=== PATIENT | female | born 1970 | race Caucasian/White ===

== ENCOUNTER 2016-05-26 12:51 | Emergency (ER) | payer SELFPAY ==
--- NOTE | 2016-05-26 13:45 | ER Document Report ---
ED Medical Screen (RME) - General Stated Complaint: COUGH Notes: Patient complains of sinus congestion, sore neck, cough and dizziness since Wednesday afternoon. No known fever. Denies history of sinus infections. I have greeted and performed a rapid initial assessment of this patient. A comprehensive ED assessment and evaluation of the patient, analysis of test results and completion of the medical decision making process will be conducted by additional ED providers. TRAVEL OUTSIDE OF THE [place] IN LAST 30 DAYS: No - Related Data Allergies/Adverse Reactions: tramadol [Tramadol] Allergy (Intermediate, Verified 05/26/16 13:43) "SLUGGISH" "SICK FEELING" Past Medical History - Past Medical History Cardiac Medical History: Denies: Hx Coronary Artery Disease, Hx Heart Attack, Hx Hypertension Pulmonary Medical History: Denies: Hx Asthma, Hx Bronchitis, Hx COPD, Hx Pneumonia Neurological Medical History: Denies: Hx Cerebrovascular Accident, Hx Seizures Renal/ Medical History: Reports: Hx Ovarian Cysts Musculoskeltal Medical History: Denies Hx Arthritis Psychiatric Medical History: Reports: Hx Depression Past Surgical History: Reports: Hx Abdominal Surgery - gastric bypass, Hx Cholecystectomy, Hx Gastric Bypass Surgery, Hx Orthopedic Surgery - KNEE. Denies: Hx Hysterectomy - Immunizations Hx Diphtheria, Pertussis, Tetanus Vaccination: No Physical Exam - Vital signs Vitals: Temp Pulse Resp BP Pulse Ox 99.2 F 92 18 91/64 L 100 05/26/16 13:42 05/26/16 13:42 05/26/16 13:42 05/26/16 13:42 05/26/16 13:42 - Respiratory Respiratory status: No respiratory distress Breath sounds: Normal Course - Vital Signs Vital signs: Temp Pulse Resp BP Pulse Ox 99.2 F 92 18 91/64 L 100 05/26/16 13:42 05/26/16 13:42 05/26/16 13:42 05/26/16 13:42 05/26/16 13:42
[2016-05-26] MEDS ORDERED: PSEUDOEPHEDRINE HCL 30 MG TABLET PO ONE (16:35)
[2016-05-26] MEDS ORDERED: IBUPROFEN 600 MG TABLET PO ONE (16:35)
[2016-05-26] MEDS ORDERED: LORATADINE 10 MG TABLET PO ONE (16:35)
--- NOTE | 2016-05-26 16:39 | ER Document Report ---
ED Respiratory Problem - General Chief Complaint: Sinus Congestion Stated Complaint: COUGH Time seen by provider: 16:34 Mode of Arrival: Ambulatory Information source: Patient Notes: 45-year-old female presents to ED for cough congestion and body aches dizziness since Wednesday afternoon. States she did have a elevated temp sometimes during this period. Patient states she's been taken Mucinex and ibuprofen. TRAVEL OUTSIDE OF THE [place] IN LAST 30 DAYS: No - HPI Patient complains to provider of: Cough Onset: Other Initiating Event: - Wednesday Quality of pain: Achy Severity: Mild Pain Level: 2 Associated symptoms: Cough, Fever, PND, Runny nose, Sinus pain/pressure Similar symptoms previously: Yes Recently seen / treated by doctor: No - Related Data Allergies/Adverse Reactions: tramadol [Tramadol] Allergy (Intermediate, Verified 05/26/16 13:43) "SLUGGISH" "SICK FEELING" Past Medical History - General Information source: Patient - Social History Smoking Status: Never Smoker Cigarette use (# per day): No Chew tobacco use (# tins/day): No Smoking Education Provided: No Frequency of alcohol use: Occasional Drug Abuse: None Occupation: call center Lives with: Friend Family History: CAD, COPD, DM, Hyperlipidemia, Hypertension, Malignancy Patient has suicidal ideation: No Patient has homicidal ideation: No - Past Medical History Cardiac Medical History: Reports: None Pulmonary Medical History: Denies: Hx Asthma, Hx Bronchitis, Hx COPD, Hx Pneumonia EENT Medical History: Reports: None Neurological Medical History: Reports: None Endocrine Medical History: Reports: None Renal/ Medical History: Reports: Hx Ovarian Cysts Malignancy Medical History: Reports: None GI Medical History: Reports: None Musculoskeltal Medical History: Reports None Skin Medical History: Reports None Psychiatric Medical History: Reports: Hx Depression Traumatic Medical History: Reports: None Past Surgical History: Reports: Hx Cholecystectomy, Hx Gastric Bypass Surgery, Hx Orthopedic Surgery - KNEE - Immunizations Hx Diphtheria, Pertussis, Tetanus Vaccination: No Review of Systems - Review of Systems Constitutional: Fever, Recent illness EENT: Nose discharge, Sinus discharge Cardiovascular: No symptoms reported Respiratory: Cough Gastrointestinal: No symptoms reported Genitourinary: No symptoms reported Female Genitourinary: No symptoms reported Musculoskeletal: No symptoms reported Skin: No symptoms reported Hematologic/Lymphatic: No symptoms reported Neurological/Psychological: No symptoms reported -: Yes All other systems reviewed and negative Physical Exam - Vital signs Vitals: Temp Pulse Resp BP Pulse Ox 99.2 F 92 18 91/64 L 100 05/26/16 13:42 05/26/16 13:42 05/26/16 13:42 05/26/16 13:42 05/26/16 13:42 Interpretation: Normal - General General appearance: Appears well, Alert - HEENT Head: Normocephalic, Atraumatic Eyes: Normal Pupils: PERRL Ears: Normal External canal: Normal Tympanic membrane: Normal Sinus: Tenderness Nasal: Purulent discharge, Swelling Mouth/Lips: Normal Mucous membranes: Normal Pharynx: Post nasal drainage Neck: Normal - Respiratory Respiratory status: No respiratory distress Chest status: Nontender Breath sounds: Nonproductive cough Chest palpation: Normal - Cardiovascular Rhythm: Regular Heart sounds: Normal auscultation Murmur: No - Abdominal Inspection: Normal Distension: No distension Bowel sounds: Normal Tenderness: Nontender Organomegaly: No organomegaly - Back Back: Normal, Nontender - Extremities General upper extremity: Normal inspection, Nontender, Normal color, Normal ROM , Normal temperature General lower extremity: Normal inspection, Nontender, Normal color, Normal ROM , Normal temperature, Normal weight bearing. No: Cj's sign - Neurological Neuro grossly intact: Yes Cognition: Normal Orientation: AAOx4 [place] Coma Scale Eye Opening: Spontaneous [place] Coma Scale Verbal: Oriented [place] Coma Scale Motor: Obeys Commands [place] Coma Scale Total: 15 Speech: Normal Motor strength normal: LUE, RUE, LLE, RLE Sensory: Normal - Psychological Associated symptoms: Normal affect, Normal mood - Skin Skin Temperature: Warm Skin Moisture: Dry Skin Color: Normal Course - Re-evaluation Re-evalutation: 05/26/16 16:38 Assessment consistent with an upper respiratory infection. Patient is afebrile. Will treat with Sudafed and Claritin and ibuprofen. Patient states she's already had Mucinex today. Patient to follow-up with her primary doctor. - Vital Signs Vital signs: Temp Pulse Resp BP Pulse Ox 99.3 F 88 18 92/65 L 100 05/26/16 17:15 05/26/16 17:15 05/26/16 17:15 05/26/16 17:15 05/26/16 17:15 Discharge - Discharge Clinical Impression: Upper respiratory infection Qualifiers: URI type: unspecified URI Qualified Code(s): J06.9 - Acute upper respiratory infection, unspecified Condition: Good Disposition: HOME, SELF-CARE Instructions: Family Physicians / Practices Additional Instructions: UPPER RESPIRATORY ILLNESS: You have a viral infection of the respiratory passages -- a "cold." This common infection causes nasal congestion, drainage, and often sore throat and cough. It is highly contagious. The disease usually lasts about 10 to 14 days. There is no "cure" for the viral infection -- it must run its course. If there is a complication, such as bacterial infection in the nose, sinuses, middle ear, or bronchial tubes, antibiotics may be required. The antibiotics won't affect the virus. Drink plenty of fluids. A humidifier may help. An expectorant medication or decongestant may make you more comfortable. Use acetaminophen or ibuprofen for fever or aches. See the doctor if fever persists over two days, if there is any significant worsening of your symptoms, or if you simply fail to improve as expected. Nasal saline spray would help with your aggressive to infection would help clean your nose and reduce her symptoms. DECONGESTANT MEDICATION: A decongestant medicine has been suggested. Often this medicine is combined in the same tablet with an antihistamine or expectorant. This type of medicine is helpful in treating a bad cold or sinus condition, as well as in treatment of the nasal congestion of hay fever. It is not of much benefit for lung infections. Decongestant medicines are related to stimulants. They can cause an increase in blood pressure and heart rate. Persons with heart disease and high blood pressure should not take decongestants without discussing this with the physician. If you develop palpitations, chest pain, headache, or tremors, stop the medicine and consult your physician. COUGH-SUPPRESSANT & EXPECTORANT MEDICATION: You are to use a cough medication as needed for relief of symptoms. This medicine is a combination of an expectorant (to make the mucous thinner and more easily "coughed up") and a cough suppressant (to reduce the frequency of coughing). The cough-suppressant medicine is related to narcotics. You may experience mild nausea and sleepiness. Some patients who are very sensitive to narcotics may have stomach pain from this medicine. Taking the medicine with food reduces these side effects. Do not drive or work with machinery until you know how this medicine affects you. The expectorant should have no side effects. Iodine-containing expectorants (such as organidin) should not be taken by persons with active thyroid disease unless approved by your doctor. Call the doctor if you develop shortness of breath, hives, rash, itching, lightheadedness, or severe nausea and vomiting. USE OF ACETAMINOPHEN (Tylenol): Acetaminophen may be taken for pain relief or fever control. It's much safer than aspirin, offering a wider range of "safe" dosages. It is safe during . Some brand names are Tylenol, Panadol, Datril, Anacin 3, Tempra, and Liquiprin. Acetaminophen can be repeated every four hours. The following are maximum recommended dosages: >89 pounds or adults 650 mg to 900 mg Acetaminophen can be repeated every four hours. Maximum dose not to exceed 4000 mg a day. FOLLOW-UP CARE: If you have been referred to a physician for follow-up care, call the physician s office for an appointment as you were instructed or within the next two days. If you experience worsening or a significant change in your symptoms, notify the physician immediately or return to the Emergency Department at any time for re-evaluation. Forms: Return to Work
[2016-05-26 17:43] VITALS: BP 92/65
== END 2016-05-26 17:15 | disposition home or self-care (01) ==
LOC: ER 12:51
DX: K59.00 Constipation, unspecified (principal); N83.209 Unspecified ovarian cyst, unspecified side; R10.9 Unspecified abdominal pain; Z98.84 Bariatric surgery status
CPT/HCPCS: 99283

== ENCOUNTER 2017-06-26 12:45 | Inpatient (IN) | payer OTHER ==
[2017-06-26] MEDS ORDERED: ONDANSETRON 4 MG TAB.RAPDIS PO ONE (13:30)
--- NOTE | 2017-06-26 13:33 | ER Document Report ---
ED Medical Screen (RME) - General Chief Complaint: Abdominal Pain Stated Complaint: ABDOMINAL PAIN Time Seen by Provider: 06/26/17 13:28 Notes: Patient is having pain across the upper and mid abdominal region, in the middle and equally on both sides for about 4 days, since Wednesday. She has been vomiting for the past day and has done so greater than 20 times. Has not had any diarrhea. Has not noted any blood in her stools. She has a history of IBS. Went to a local urgent care where she was given an injection of Zofran 4 mg and that seems to have decreased her nausea currently. She thinks she may have had a low-grade fever. Patient has had a cholecystectomy and a gastric bypass about 10 years ago. TRAVEL OUTSIDE OF THE [place] IN LAST 30 DAYS: No - Related Data Allergies/Adverse Reactions: tramadol [Tramadol] Allergy (Intermediate, Verified 06/26/17 12:46) "SLUGGISH" "SICK FEELING" Past Medical History - Social History Chew tobacco use (# tins/day): No Frequency of alcohol use: Social - Past Medical History Cardiac Medical History: Denies: Hx Coronary Artery Disease, Hx Heart Attack, Hx Hypertension Pulmonary Medical History: Denies: Hx Asthma, Hx Bronchitis, Hx COPD, Hx Pneumonia Neurological Medical History: Denies: Hx Cerebrovascular Accident, Hx Seizures Renal/ Medical History: Reports: Hx Ovarian Cysts. Denies: Hx Peritoneal Dialysis Musculoskeltal Medical History: Denies Hx Arthritis Psychiatric Medical History: Reports: Hx Depression Past Surgical History: Reports: Hx Abdominal Surgery - gastric bypass, Hx Cholecystectomy, Hx Gastric Bypass Surgery, Hx Orthopedic Surgery - KNEE. Denies: Hx Hysterectomy - Immunizations Hx Diphtheria, Pertussis, Tetanus Vaccination: No Physical Exam - Vital signs Vitals: Temp Pulse Resp BP Pulse Ox 98.5 F 65 16 118/70 100 06/26/17 12:58 06/26/17 12:58 06/26/17 12:58 06/26/17 12:58 06/26/17 12:58 Course - Vital Signs Vital signs: Temp Pulse Resp BP Pulse Ox 98.2 F 65 17 106/70 99 06/26/17 18:50 06/26/17 18:50 06/26/17 19:00 06/26/17 19:00 06/26/17 19:00 - Laboratory Result Diagrams: 06/26/17 15:18 06/26/17 13:35 Laboratory results interpreted by me: 06/26/17 06/26/17 06/26/17 13:35 13:35 15:18 RBC 3.58 L Hgb 5.7 L Hct 20.9 L MCV 58 L MCH 16.0 L MCHC 27.5 L RDW 19.9 H Seg Neutrophils % 82.9 H Lymphocytes % 11.5 L BUN 6 L Glucose 130 H Urine Ketones TRACE H Crossmatch 06/26/17 15:18 RBC Hgb Hct MCV MCH MCHC RDW Seg Neutrophils % Lymphocytes % BUN Glucose Urine Ketones Crossmatch See Detail
[2017-06-26 13:55] LABS: APPEARANCE,URINE CLEAR; BILIRUBIN,URINE NEGATIVE (NEGATIVE); COLOR,URINE YELLOW; GLUCOSE, URINE NEGATIVE (NEGATIVE); KETONES,URINE TRACE mg/dL (NEGATIVE); LEUKOCYTE ESTERASE,URINE NEGATIVE (NEGATIVE); NITRITE,URINE NEGATIVE (NEGATIVE); PROTEIN,URINE NEGATIVE (NEGATIVE); URINE SPECIFIC GRAVITY 1.016; UROBILINOGEN,URINE NEGATIVE mg/dL (<2.0)
[2017-06-26 14:17] LABS: ALANINE AMINOTRANSFERASE 23 U/L (9-52); ALBUMIN 4.5 g/dL (3.5-5.0); ALKALINE PHOSPHATASE 56 U/L (38-126); ANION GAP 16 (5-19); ASPARTATE AMINO TRANSFERASE 23 U/L (14-36); BILIRUBIN,DIRECT 0.2 mg/dL (0.0-0.4); BILIRUBIN,TOTAL 0.7 mg/dL (0.2-1.3); BLOOD UREA NITROGEN 6 mg/dL (7-20); CALCIUM 9.7 mg/dL (8.4-10.2); CARBON DIOXIDE 22 mmol/L (22-30); CHLORIDE 103 mmol/L (98-107); GLUCOSE 130 mg/dL (75-110); LIPASE 72.9 U/L (23-300); POTASSIUM 4.2 mmol/L (3.6-5.0); SODIUM 140.8 mmol/L (137-145); TOTAL PROTEIN 7.6 g/dL (6.3-8.2)
--- NOTE | 2017-06-26 15:31 | RADIOLOGY REPORT (SQ) ---
EXAM DESCRIPTION: ABDOMEN 2 VIEWS COMPLETED DATE/TIME: 06/26/2017 3:14 pm REASON FOR STUDY: Abdominal pain and vomiting, Hx IBS COMPARISON: CT abdomen pelvis 01/23/2014, 05/25/2014 KUB 04/17/2014 NUMBER OF VIEWS: Two views. TECHNIQUE: Supine and upright radiographic images of the abdomen acquired. LIMITATIONS: None. FINDINGS: FREE AIR: None. No abnormal gas collections. LUNG BASES: Clear. Moderate cardiomegaly. BOWEL GAS PATTERN: Abnormal bowel gas pattern with left upper quadrant mildly dilated small bowel loo ps with air-fluid levels. Colon decompressed. Surgical clips left upper quadrant post gastric bypas s. CALCIFICATIONS: No suspicious calcifications. SOFT TISSUES: No gross mass or suggestion of organomegaly. HARDWARE: Surgical clips left upper quadrant post gastric bypass. Clips right upper quadrant post ch olecystectomy. BONES: No acute fracture. No worrisome bone lesions. OTHER: No other significant finding. IMPRESSION: Abnormal bowel gas pattern with air-fluid levels in mildly distended left upper quadrant small bowel loops. This could represent an ileus. Early or partial small bowel obstruction or comp lications from gastric bypass could not be excluded. If CT is to be performed for follow-up, recomme nd CT exam with oral contrast TECHNICAL DOCUMENTATION: JOB ID: [id number] [employer]- All Rights Reserved Reading location - IP/workstation name: [email or web address]
--- NOTE | 2017-06-26 15:36 | ER Document Report ---
ED General - General Chief Complaint: Abdominal Pain Stated Complaint: ABDOMINAL PAIN Time Seen by Provider: 06/26/17 13:28 Mode of Arrival: Ambulatory Information source: Patient Notes: 46-year-old female with a history of IBS presents with complaint of abdominal pain that started 1 day prior to arrival. Patient's pain is diffusely located. She describes it as a cramping, throbbing pain that is not relieved with hydrocodone. She is also complaining of nausea, multiple episodes of vomiting, abdominal distention. Patient's last bowel movement was 3 days prior to arrival. She does have a long-standing history of constipation. She denies any previous history of obstruction. She has recently been on amoxicillin and hydrocodone for a tooth infection. She denies any fever but admits to chills, sweats. She denies recent hospitalization and sick contacts. She denies sexual activity, concern for STD. She does have a surgical history of gastric bypass and cholecystectomy. TRAVEL OUTSIDE OF THE [place] IN LAST 30 DAYS: No - HPI Onset: Yesterday Onset/Duration: Gradual Quality of pain: Cramping, Throbbing Associated symptoms: Nausea, Vomiting. denies: Fever Exacerbated by: Movement Relieved by: Other - Heating pad Similar symptoms previously: Yes Recently seen / treated by doctor: No - Related Data Allergies/Adverse Reactions: tramadol [Tramadol] Allergy (Intermediate, Verified 06/26/17 12:46) "SLUGGISH" "SICK FEELING" Past Medical History - General Information source: Patient - Social History Smoking Status: Current Every Day Smoker Chew tobacco use (# tins/day): No Frequency of alcohol use: Social Drug Abuse: None Lives with: Family Family History: CAD, COPD, DM, Hyperlipidemia, Hypertension, Malignancy Patient has suicidal ideation: No Patient has homicidal ideation: No - Past Medical History Cardiac Medical History: Denies: Hx Coronary Artery Disease, Hx Heart Attack, Hx Hypertension Pulmonary Medical History: Denies: Hx Asthma, Hx Bronchitis, Hx COPD, Hx Pneumonia Neurological Medical History: Denies: Hx Cerebrovascular Accident, Hx Seizures Renal/ Medical History: Reports: Hx Ovarian Cysts. Denies: Hx Peritoneal Dialysis Musculoskeltal Medical History: Denies Hx Arthritis Psychiatric Medical History: Reports: Hx Depression Past Surgical History: Reports: Hx Abdominal Surgery - gastric bypass, Hx Cholecystectomy, Hx Gastric Bypass Surgery, Hx Orthopedic Surgery - KNEE. Denies: Hx Hysterectomy - Immunizations Hx Diphtheria, Pertussis, Tetanus Vaccination: No Review of Systems - Review of Systems Notes: Patient denies fever, chills, headache, ear pain, sore throat, cough, chest pain , shortness of breath, dysuria, hematuria, rash, SI/HI. She currently complaining of nausea, vomiting, abdominal pain, low back pain. Physical Exam - Vital signs Vitals: Temp Pulse Resp BP Pulse Ox 98.5 F 65 16 118/70 100 06/26/17 12:58 06/26/17 12:58 06/26/17 12:58 06/26/17 12:58 06/26/17 12:58 - Notes Notes: PHYSICAL EXAMINATION: GENERAL: Well-appearing, well-nourished and in no acute distress. HEAD: Atraumatic, normocephalic. EYES: Pupils equal round and reactive to light, extraocular movements intact, conjunctiva are normal. ENT: Nares patent, oropharynx clear without exudates. Moist mucous membranes. NECK: Normal range of motion, supple without lymphadenopathy LUNGS: Breath sounds clear to auscultation bilaterally and equal. No wheezes rales or rhonchi. HEART: Regular rate and rhythm without murmurs ABDOMEN: Abdominal distention, diffuse tenderness with palpation. Hyperactive bowel sounds. No guarding, no rebound. No masses appreciated. Female : deferred Rectal: brown stool, Hemoccult negative Musculoskeletal: Normal range of motion, no pitting or edema. No cyanosis. NEUROLOGICAL: Cranial nerves grossly intact. Normal speech, normal gait. Normal sensory, motor exams PSYCH: Normal mood, normal affect. SKIN: Warm, Dry, normal turgor, no rashes or lesions noted. Course - Re-evaluation Re-evalutation: Laboratory 06/26/17 06/26/17 06/26/17 13:35 13:35 13:35 WBC Cancelled RBC Cancelled Hgb Cancelled Hct Cancelled MCV Cancelled MCH Cancelled MCHC Cancelled RDW Cancelled Plt Count Cancelled Seg Neutrophils % Cancelled Lymphocytes % Cancelled Monocytes % Cancelled Eosinophils % Cancelled Basophils % Cancelled Absolute Neutrophils Cancelled Absolute Lymphocytes Cancelled Absolute Monocytes Cancelled Absolute Eosinophils Cancelled Absolute Basophils Cancelled Platelet Estimate Cancelled Platelet Comment Polychromasia Hypochromasia Poikilocytosis Anisocytosis Microcytosis Tear Drop Cells Ovalocytes Sodium 140.8 Potassium 4.2 Chloride 103 Carbon Dioxide 22 Anion Gap 16 BUN 6 L Creatinine 0.54 Est GFR ( Amer) > 60 Est GFR (Non-Af Amer) > 60 Glucose 130 H Lactic Acid Calcium 9.7 Total Bilirubin 0.7 Direct Bilirubin 0.2 Neonat Total Bilirubin Not Reportable Neonat Direct Bilirubin Not Reportable Neonat Indirect Bili Not Reportable AST 23 ALT 23 Alkaline Phosphatase 56 Total Protein 7.6 Albumin 4.5 Lipase 72.9 Serum HCG, Qual NEGATIVE Urine Color Urine Appearance Urine pH Ur Specific Downing Urine Protein Urine Glucose (UA) Urine Ketones Urine Blood Urine Nitrite Urine Bilirubin Urine Urobilinogen Ur Leukocyte Esterase Urine WBC (Auto) Urine RBC (Auto) Squamous Epi Cells Auto Urine Mucus (Auto) Urine Ascorbic Acid Stool Occult Blood Slides for Path Review Cancelled Blood Type Antibody Screen Crossmatch 06/26/17 06/26/17 06/26/17 13:35 15:18 15:18 WBC 9.6 RBC 3.58 L Hgb 5.7 L Hct 20.9 L MCV 58 L MCH 16.0 L MCHC 27.5 L RDW 19.9 H Plt Count 379 Seg Neutrophils % 82.9 H Lymphocytes % 11.5 L Monocytes % 5.0 Eosinophils % 0.1 Basophils % 0.5 Absolute Neutrophils 8.0 Absolute Lymphocytes 1.1 Absolute Monocytes 0.5 Absolute Eosinophils 0.0 Absolute Basophils 0.0 Platelet Estimate Platelet Comment ADEQUATE Polychromasia 1+ Hypochromasia 3+ Poikilocytosis 1+ Anisocytosis 2+ Microcytosis 4+ Tear Drop Cells SLIGHT Ovalocytes SLIGHT Sodium Potassium Chloride Carbon Dioxide Anion Gap BUN Creatinine Est GFR ( Amer) Est GFR (Non-Af Amer) Glucose Lactic Acid Calcium Total Bilirubin Direct Bilirubin Neonat Total Bilirubin Neonat Direct Bilirubin Neonat Indirect Bili AST ALT Alkaline Phosphatase Total Protein Albumin Lipase Serum HCG, Qual Urine Color YELLOW Urine Appearance CLEAR Urine pH 6.0 Ur Specific Downing 1.016 Urine Protein NEGATIVE Urine Glucose (UA) NEGATIVE Urine Ketones TRACE H Urine Blood NEGATIVE Urine Nitrite NEGATIVE Urine Bilirubin NEGATIVE Urine Urobilinogen NEGATIVE Ur Leukocyte Esterase NEGATIVE Urine WBC (Auto) 2 Urine RBC (Auto) 0 Squamous Epi Cells Auto <1 Urine Mucus (Auto) RARE Urine Ascorbic Acid NEGATIVE Stool Occult Blood Slides for Path Review Blood Type O NEGATIVE Antibody Screen NEGATIVE Crossmatch See Detail 06/26/17 06/26/17 16:30 16:39 WBC RBC Hgb Hct MCV MCH MCHC RDW Plt Count Seg Neutrophils % Lymphocytes % Monocytes % Eosinophils % Basophils % Absolute Neutrophils Absolute Lymphocytes Absolute Monocytes Absolute Eosinophils Absolute Basophils Platelet Estimate Platelet Comment Polychromasia Hypochromasia Poikilocytosis Anisocytosis Microcytosis Tear Drop Cells Ovalocytes Sodium Potassium Chloride Carbon Dioxide Anion Gap BUN Creatinine Est GFR ( Amer) Est GFR (Non-Af Amer) Glucose Lactic Acid 0.9 Calcium Total Bilirubin Direct Bilirubin Neonat Total Bilirubin Neonat Direct Bilirubin Neonat Indirect Bili AST ALT Alkaline Phosphatase Total Protein Albumin Lipase Serum HCG, Qual Urine Color Urine Appearance Urine pH Ur Specific Downing Urine Protein Urine Glucose (UA) Urine Ketones Urine Blood Urine Nitrite Urine Bilirubin Urine Urobilinogen Ur Leukocyte Esterase Urine WBC (Auto) Urine RBC (Auto) Squamous Epi Cells Auto Urine Mucus (Auto) Urine Ascorbic Acid Stool Occult Blood NEGATIVE Slides for Path Review Blood Type Antibody Screen Crossmatch Abdomen/Pelvis CT 06/26/17 00:00 IMPRESSION: Multiple mildly dilated loops of small bowel throughout the abdomen with probable transition in the right lower quadrant suggesting early obstruction. Mild Free fluid . Abdomen X-Ray 06/26/17 13:30 IMPRESSION: Abnormal bowel gas pattern with air-fluid levels in mildly distended left upper quadrant small bowel loops. This could represent an ileus. Early or partial small bowel obstruction or complications from gastric bypass could not be excluded. If CT is to be performed for follow-up, recommend CT exam with oral contrast 06/26/17 19:52 Surgery consulted for early small bowel obstruction. NG tube placed. Blood transfusions initiated. 06/26/17 23:30 46-year-old female with a history of IBS presents with complaint of abdominal pain that started 1 day prior to arrival. Patient's pain is diffusely located. She describes it as a cramping, throbbing pain that is not relieved with hydrocodone. She is also complaining of nausea, multiple episodes of vomiting, abdominal distention. Patient's last bowel movement was 3 days prior to arrival. She does have a long-standing history of constipation. She denies any previous history of obstruction. She has recently been on amoxicillin and hydrocodone for a tooth infection. She does have a surgical history of gastric bypass and cholecystectomy. Patient was seen by myself upon arrival. Vital signs were reviewed. Patient does not appear toxic or dehydrated, she does appear very pale. They are in no acute distress. Previous medical records and nursing notes reviewed. Significant findings include a hemoglobin of 5.6. Patient does report history of iron deficiency C anemia. She states she is supposed to be on iron supplementation but that it worsens her constipation. She has received previous blood transfusions in the past. CBC shows no leukocytosis but a hemoglobin of 5.6. CMP shows no electrolyte abnormalities. CT of the abdomen and pelvis is concerning for small bowel obstruction. NG tube was placed. 2 units of PRBCs was transfused. She received IV fluids, Zofran Zofran, morphine. Al-Anon, Lasix and Benadryl were also given for her blood transfusion. Surgery was consulted for small bowel obstruction and has accepted the patient for admission. Patient remained stable throughout her ED course. - Vital Signs Vital signs: Temp Pulse Resp BP Pulse Ox 99.4 F 60 18 130/73 H 100 06/26/17 22:09 06/26/17 22:09 06/26/17 22:09 06/26/17 22:09 06/26/17 22:09 - Laboratory Result Diagrams: 06/26/17 15:18 06/26/17 13:35 Laboratory results interpreted by me: 06/26/17 06/26/17 06/26/17 13:35 13:35 15:18 RBC 3.58 L Hgb 5.7 L Hct 20.9 L MCV 58 L MCH 16.0 L MCHC 27.5 L RDW 19.9 H Seg Neutrophils % 82.9 H Lymphocytes % 11.5 L BUN 6 L Glucose 130 H Urine Ketones TRACE H Crossmatch 06/26/17 15:18 RBC Hgb Hct MCV MCH MCHC RDW Seg Neutrophils % Lymphocytes % BUN Glucose Urine Ketones Crossmatch See Detail - Diagnostic Test Radiology reviewed: Image reviewed, Reports reviewed Discharge - Discharge Clinical Impression: Small bowel obstruction Nausea & vomiting Qualifiers: Vomiting type: unspecified Vomiting Intractability: non-intractable Qualified Code(s): R11.2 - Nausea with vomiting, unspecified Constipation Qualifiers: Constipation type: unspecified constipation type Qualified Code(s): K59.00 - Constipation, unspecified Anemia Qualifiers: Anemia type: iron deficiency Iron deficiency anemia type: unspecified iron deficiency Qualified Code(s): D50.9 - Iron deficiency anemia, unspecified Disposition: ADMITTED INPATIENT Admitting Provider: Surgicalist Unit Admitted: Surgical Floor
[2017-06-26] MEDS ORDERED: MORPHINE SULFATE 10 MG/ML INJ IV ONE (15:37)
[2017-06-26] MEDS ORDERED: METOCLOPRAMIDE HCL INJ/PF 10 MG/2 ML SDV IV ONE ×2 (15:37→19:43)
[2017-06-26 15:55] LABS: ABSOLUTE LYMPHOCYTES (AUTO) 1.1 10^3/uL (0.5-4.7); ABSOLUTE MONOCYTES (AUTO) 0.5 10^3/uL (0.1-1.4); BASOPHILS % (AUTO) 0.5 % (0-2); EOSINOPHILS % (AUTO) 0.1 % (0-6); HEMATOCRIT 20.9 % (36.0-47.0); LYMPHOCYTES % (AUTO) 11.5 % (13-45); MEAN CORPUSCULAR HGB CONC 27.5 g/dL (32.0-36.0); PLATELET COUNT 379 10^3/uL (150-450); RED BLOOD COUNT 3.58 10^6/uL (3.72-5.28); RED CELL DISTRIBUTION WIDTH 19.9 % (11.5-14.0); SEGMENTED NEUTROPHILS % (AUTO) 82.9 % (42-78); TOTAL CELLS COUNTED % (AUTO) 100 %; WHITE BLOOD COUNT 9.6 10^3/uL (4.0-10.5)
[2017-06-26 16:03] LABS: HEMOGLOBIN 5.7 g/dL (12.0-15.5); MEAN CORPUSCULAR VOLUME 58 fl (80-97)
[2017-06-26] MEDS ORDERED: ACETAMINOPHEN 325 MG TABLET PO PRN (16:08)
[2017-06-26] MEDS ORDERED: NORMAL SALINE 250 ML IV PRN ×2 (16:08)
[2017-06-26] MEDS ORDERED: DIPHENHYDRAMINE HCL 25 MG CAPSULE PO PRN (16:08)
[2017-06-26] MEDS ORDERED: FUROSEMIDE 20 MG TABLET PO PRN (16:08)
[2017-06-26 16:24] LABS: ANISOCYTOSIS 2+; HYPOCHROMASIA 3+; OVALOCYTES SLIGHT; POIKILOCYTOSIS 1+; POLYCHROMASIA 1+; TEAR DROP CELLS SLIGHT
[2017-06-26 16:25] LABS: PLATELET COMMENT ADEQUATE
--- NOTE | 2017-06-26 19:02 | RADIOLOGY REPORT (SQ) ---
EXAM DESCRIPTION: CT ABD/PELVIS WITH IV ORAL COMPLETED DATE/TIME: 06/26/2017 6:47 pm REASON FOR STUDY: Possible obstruction COMPARISON: 05/25/2014 TECHNIQUE: CT scan of the abdomen and pelvis performed using helical scanning technique with dynamic intravenous contrast injection. No oral contrast. Images reviewed with lung, soft tissue, and bone windows. Reconstructed coronal and sagittal MPR images reviewed. Delayed images for evaluation of the urinary system also acquired. All images stored on PACS. All CT scanners at this facility use dose modulation, iterative reconstruction, and/or weight based d osing when appropriate to reduce radiation dose to as low as reasonably achievable (ALARA). [facility]: Dose Right [facility]: CareDose [facility]: Dose Right [facility]: Teradose 4D [facility]: GroupVox CONTRAST TYPE AND DOSE: contrast/concentration: Isovue 370.00 mg/ml; Total Contrast Delivered: 68.0 ml; Total Saline Delivered: 65.0 ml RENAL FUNCTION: GFR > 60. RADIATION DOSE: CT Rad equipment meets quality standard of care and radiation dose reduction techniq ues were employed. CTDIvol: 5.7 - 7.8 mGy. DLP: 728 mGy-cm.. LIMITATIONS: None. FINDINGS: LOWER CHEST: No significant findings. No nodules or infiltrates. LIVER: Normal size. No masses. Stable dilated ducts. SPLEEN: Normal size. No focal lesions. PANCREAS: No masses. No significant calcifications. No adjacent inflammation or peripancreatic fluid collections. Pancreatic duct not dilated. GALLBLADDER: Surgically absent. ADRENAL GLANDS: No significant masses or asymmetry. RIGHT KIDNEY AND URETER: No solid masses. No significant calcifications. No hydronephrosis or hyd roureter. LEFT KIDNEY AND URETER: No solid masses. No significant calcifications. No hydronephrosis or hydr oureter. AORTA AND VESSELS: No aneurysm. No dissection. Renal arteries, SMA, celiac without stenosis. RETROPERITONEUM: No retroperitoneal adenopathy, hemorrhage or masses. BOWEL AND PERITONEAL CAVITY: Multiple mildly dilated loops of small bowel throughout the abdomen with probable transition in the right lower quadrant. Mild Free fluid . APPENDIX: Normal. PELVIS: No mass. Mild free fluid. Normal bladder. ABDOMINAL WALL: No masses. No hernias. BONES: No acute findings. OTHER: No other significant finding. IMPRESSION: Multiple mildly dilated loops of small bowel throughout the abdomen with probable transi tion in the right lower quadrant suggesting early obstruction. Mild Free fluid . TECHNICAL DOCUMENTATION: JOB ID: [id number] [id number] Quality ID # [id number]: Final reports with documentation of one or more dose reduction techniques (e.g., Au tomated exposure control, adjustment of the mA and/or kV according to patient size, use of iterative reconstruction technique) 2010 [employer]- All Rights Reserved Reading location - IP/workstation name: [email or web address]
[2017-06-26] MEDS ORDERED: FENTANYL CITRATE INJ/PF 100 MCG/2 ML AMPUL IV ONE (19:43)
[2017-06-26] MEDS ORDERED: LIDOCAINE 0.5% INJ-PF (5 MG/ML) 50 ML SDV NEB ONE (19:43)
[2017-06-26] MEDS ORDERED: ONDANSETRON HCL INJ/PF 4 MG/2 ML SDV ONE (22:46)
[2017-06-26] MEDS: HYDROMORPHONE HCL INJ/PF 2 MG/ML AMPULE IV PRN (23:00)
[2017-06-26] MEDS: ONDANSETRON HCL INJ/PF 4 MG/2 ML SDV IV PRN (23:00)
[2017-06-27] MEDS: POTASSI CL 20 MEQ/D5-1/2NS 1L 1,000 ML IV PRN ×3 (01:10→20:01)
[2017-06-27] MEDS: ONDANSETRON HCL INJ/PF 4 MG/2 ML SDV IV PRN ×4 (03:07→18:09)
[2017-06-27] MEDS: HYDROMORPHONE HCL INJ/PF 2 MG/ML AMPULE IV PRN ×4 (03:07→18:09)
[2017-06-27 06:33] LABS: ABSOLUTE LYMPHOCYTES (AUTO) 0.9 10^3/uL (0.5-4.7); ABSOLUTE MONOCYTES (AUTO) 0.6 10^3/uL (0.1-1.4); ABSOLUTE NEUT (AUTO) 6.4 10^3/uL (1.7-8.2); BASOPHILS % (AUTO) 0.2 % (0-2); EOSINOPHILS % (AUTO) 0.1 % (0-6); HEMATOCRIT 24.3 % (36.0-47.0); LYMPHOCYTES % (AUTO) 11.9 % (13-45); MEAN CORPUSCULAR HEMOGLOBIN 19.2 pg (27.0-33.4); MEAN CORPUSCULAR HGB CONC 30.1 g/dL (32.0-36.0); MONOCYTES % (AUTO) 8.1 % (3-13); PLATELET COUNT 272 10^3/uL (150-450); RED BLOOD COUNT 3.83 10^6/uL (3.72-5.28); SEGMENTED NEUTROPHILS % (AUTO) 79.7 % (42-78); TOTAL CELLS COUNTED % (AUTO) 100 %
[2017-06-27 06:36] LABS: INTERNATIONAL RATION (INR) 1.02; PROTHROMBIN TIME 13.9 SEC (11.4-15.4)
[2017-06-27 06:43] LABS: ALANINE AMINOTRANSFERASE 22 U/L (9-52); ALBUMIN 3.8 g/dL (3.5-5.0); ALKALINE PHOSPHATASE 46 U/L (38-126); ANION GAP 10 (5-19); ASPARTATE AMINO TRANSFERASE 19 U/L (14-36); BILIRUBIN,DIRECT 0.2 mg/dL (0.0-0.4); BILIRUBIN,TOTAL 1.1 mg/dL (0.2-1.3); BLOOD UREA NITROGEN 6 mg/dL (7-20); CALCIUM 9.2 mg/dL (8.4-10.2); CARBON DIOXIDE 26 mmol/L (22-30); CHLORIDE 103 mmol/L (98-107); GLUCOSE 127 mg/dL (75-110); PHOSPHORUS 4.1 mg/dL (2.5-4.5); TOTAL PROTEIN 6.6 g/dL (6.3-8.2)
[2017-06-27 06:58] LABS: HEMOGLOBIN 7.3 g/dL (12.0-15.5); MEAN CORPUSCULAR VOLUME 64 fl (80-97)
[2017-06-27 07:00] LABS: HYPOCHROMASIA 2+; POLYCHROMASIA 1+
[2017-06-27 07:01] LABS: ANISOCYTOSIS 3+; PLATELET COMMENT ADEQUATE; POIKILOCYTOSIS 2+; SCHISTOCYTES 1+
--- NOTE | 2017-06-27 08:46 | RADIOLOGY REPORT (SQ) ---
EXAM DESCRIPTION: KUB/ABDOMEN (SINGLE VIEW) COMPLETED DATE/TIME: 06/27/2017 8:22 am REASON FOR STUDY: SBO, distention COMPARISON: 06/26/2017 NUMBER OF VIEWS: One view. TECHNIQUE: Supine radiographic image of the abdomen acquired. LIMITATIONS: None. FINDINGS: BOWEL GAS PATTERN: Persistent dilated loops of small bowel some containing contrast. Feca l material in the colon. CALCIFICATIONS: No suspicious calcifications. SOFT TISSUES: Contrast in the urinary bladder. HARDWARE: None. BONES: No bone lesions or fracture. OTHER: No other significant finding. IMPRESSION: Ileus or partial small bowel obstruction. No significant change. Reading location - IP/workstation name: [email or web address]
--- NOTE | 2017-06-27 09:50 | PDOC H&P ---
History of Present Illness Admission Date/PCP: 06/26/17 20:41 Patient complains of: Nausea, vomiting, abdominal distention, abdominal pain History of Present Illness: MIRNA TELLEZ is a 46 year old female with a history of gastric bypass surgery. She has a long history of chronic constipation. Recently underwent a dental procedure and has been taking hydrocodone. The patient reports abdominal distention, cramping, nausea, and vomiting for the last 2-3 days. Her pain and symptoms are worsening to the point where she cannot stand it. She presented to the emergency department for evaluation. The pain is worst in the lower abdomen. Nothing makes her pain and nausea better. Eating makes it worse. Patient denies any chest pain, shortness of breath, fevers, chills. Her last bowel movement was 3 days ago. She has not passed any flatus recently. Past Medical History Cardiac Medical History: Denies: Coronary Artery Disease, Myocardial Infarction, Hypertension Pulmonary Medical History: Denies: Asthma, Bronchitis, Chronic Obstructive Pulmonary Disease (COPD), Pneumonia Neurological Medical History: Denies: Seizures Musculoskeltal Medical History: Denies: Arthritis Psychiatric Medical History: Reports: Depression Hematology: Reports: Anemia Past Surgical History Past Surgical History: Reports: Cholecystectomy, Gastric Bypass Surgery - Laparoscopic, performed in [place]., Orthopedic Surgery - KNEE Denies: Hysterectomy Social History Lives with: Family Smoking Status: Current Every Day Smoker Frequency of Alcohol Use: Occasional Drugs: None Family History Family History: CAD, COPD, DM, Hyperlipidemia, Hypertension, Malignancy Parental Family History Reviewed: Yes Children Family History Reviewed: Yes Sibling(s) Family History Reviewed.: Yes Medication/Allergy Home Medications: Citalopram Hydrobromide [Celexa] 20 mg PO QHS 06/03/11 Valacyclovir HCl [Valtrex] 500 mg PO DAILY 06/03/11 Cyclobenzaprine HCl [Flexeril 10 Mg Tablet] 10 mg PO TIDP PRN #20 tablet Oxycodone HCl/Acetaminophen [Oxycodone-Acetaminophen 5-325] 1 - 2 each PO ASDIR #15 tablet 01/15/14 Dicyclomine HCl [Bentyl 20 mg Tablet] 20 mg PO QID #120 tablet 05/25/14 Docusate Sodium [Colace 100 mg Capsule] 100 mg PO BID #60 capsule 05/25/14 Polyethylene Glycol 3350 [Miralax Powder 17 Gm/Packet] 17 gm PO DAILY #30 powd.pack 05/25/14 Calcium Carb/Vitamin D3/Vit K1 [Calcium + D Soft Chewable Tab] 1 each PO DAILY 06/19/14 Iron,Carbonyl/Ascorbic Acid [Iron 100-Vitamin C Tablet] 1 each PO DAILY Multivitamin [Daily Vitamin] 1 each PO DAILY 06/19/14 Vitamin B Complex [Super B [id number]] 1 each PO DAILY 06/19/14 Allergies/Adverse Reactions: tramadol [Tramadol] Allergy (Intermediate, Verified 06/26/17 12:46) "SLUGGISH" "SICK FEELING" Review of Systems Constitutional: PRESENT: anorexia, fatigue. ABSENT: chills, fever(s), headache( s) Eyes: ABSENT: visual disturbances Ears: ABSENT: hearing changes Nose, Mouth, and Throat: ABSENT: sore throat Cardiovascular: ABSENT: chest pain, dyspnea on exertion, palpitations Respiratory: ABSENT: cough, dyspnea, hemoptysis Gastrointestinal: PRESENT: abdominal pain, bloating, constipation, nausea, vomiting. ABSENT: hematemesis, hematochezia, melena Genitourinary: ABSENT: dysuria Musculoskeletal: ABSENT: joint swelling Integumentary: ABSENT: pruritus, rash Neurological: ABSENT: abnormal gait, abnormal movements, confusion, dizziness, memory loss Psychiatric: ABSENT: anxiety, depression, hallucinations Endocrine: ABSENT: cold intolerance, heat intolerance Hematologic/Lymphatic: ABSENT: easy bleeding, easy bruising Physical Exam Vital Signs: Temp Pulse Resp BP Pulse Ox 98.0 F 65 15 114/75 98 06/26/17 20:18 06/26/17 20:18 06/26/17 20:18 06/26/17 20:18 06/26/17 20:18 General appearance: PRESENT: mild distress - Abdominal pain Head exam: PRESENT: atraumatic, normocephalic Eye exam: PRESENT: EOMI, PERRLA. ABSENT: conjunctival injection, scleral icterus Mouth exam: PRESENT: moist, neck supple Teeth exam: ABSENT: poor dentation Neck exam: ABSENT: lymphadenopathy, meningismus, tenderness, thyromegaly, tracheal deviation Respiratory exam: PRESENT: clear to auscultation kareen. ABSENT: accessory muscle use, chest wall tenderness, rales, retraction, rhonchi, stridor Cardiovascular exam: PRESENT: RRR Vascular exam: PRESENT: normal capillary refill. ABSENT: pallor GI/Abdominal exam: PRESENT: distended, tenderness - Mild to moderate. ABSENT: guarding, hernia, mass, rebound Extremities exam: ABSENT: clubbing, joint swelling, pedal edema, tenderness Musculoskeletal exam: PRESENT: normal inspection Neurological exam: PRESENT: alert, awake, oriented to person, oriented to place , oriented to time, CN II-XII grossly intact, normal gait. ABSENT: motor sensory deficit Psychiatric exam: PRESENT: normal mood. ABSENT: agitated, anxious, depressed Skin exam: ABSENT: cyanosis, erythema, jaundice, mottled, rash Results Impressions: Abdomen/Pelvis CT 06/26/17 00:00 IMPRESSION: Multiple mildly dilated loops of small bowel throughout the abdomen with probable transition in the right lower quadrant suggesting early obstruction. Mild Free fluid . Abdomen X-Ray 06/26/17 13:30 IMPRESSION: Abnormal bowel gas pattern with air-fluid levels in mildly distended left upper quadrant small bowel loops. This could represent an ileus. Early or partial small bowel obstruction or complications from gastric bypass could not be excluded. If CT is to be performed for follow-up, recommend CT exam with oral contrast Assessment & Plan - Plan Summary Plan Summary: This is a 46-year-old female with 3 day history of abdominal pain, swelling, nausea, vomiting. The patient is status post laparoscopic gastric bypass approximately 10 years ago in [place]. The patient has a CT scan that I have personally reviewed. It appears to have dilated loops of small bowel and a large burden of stool in the right colon. It appears that the patient may have a distal small bowel obstruction, possibly caused from right-sided fecal stasis versus adhesions versus internal hernia. The patient's abdominal exam is distended, but minimally tender. She does not exhibit peritoneal signs. Her white count is normal. I have offered the patient transfer to a facility with a bariatric surgeon, however she has refused. I will admit the patient and repeat her x-rays in the morning. If she has persistence of her small bowel obstruction, she will likely require operative exploration. This is been discussed with the patient at length. She is in agreement with the treatment plan.
[2017-06-27] MEDS ORDERED: ROCURONIUM BROMIDE INJ 50 MG/5 ML VIAL IV ONE (10:57)
[2017-06-27] MEDS ORDERED: GLYCOPYRROLATE INJ 0.4 MG/2 ML VIAL ONE (10:57)
[2017-06-27] MEDS ORDERED: SUCCINYLCHOLINE CHLORIDE INJ 200 MG/10 ML VIAL ONE (10:57)
[2017-06-27] MEDS ORDERED: LIDOCAINE 2% INJ-PF (20 MG/ML) 2 ML AMPUL ONE (10:57)
[2017-06-27] MEDS ORDERED: NEOSTIGMINE METHYLSULFATE 10 MG/10 ML VIAL ONE (10:57)
--- NOTE | 2017-06-27 13:12 | PDOC PROGRESS REPORT ---
Subjective Progress Note for:: 06/27/17 Subjective:: This is a 46-year-old female admitted with small bowel obstruction. NG decompression was deferred secondary to her history of gastric bypass. She reports feeling better today. She denies any nausea or vomiting today. She reports that she is hungry. She is passing small amounts of flatus. She denies fevers, chills, chest pain, shortness of breath, dizziness, orthostasis, headache, fatigue. Reason For Visit: SMALL BOWEL OBSTRUCTION Physical Exam Vital Signs: Temp Pulse Resp BP Pulse Ox 98.9 F 60 15 109/67 98 06/27/17 12:52 06/27/17 12:52 06/27/17 12:52 06/27/17 12:52 06/27/17 12:52 Intake & Output 06/26/17 06/27/17 06/28/17 06:59 06:59 06:59 Intake Total 0 0 Balance 0 0 Weight 64.4 kg General appearance: PRESENT: no acute distress Head exam: PRESENT: atraumatic, normocephalic Eye exam: PRESENT: EOMI, PERRLA. ABSENT: conjunctival injection, scleral icterus Mouth exam: PRESENT: moist, neck supple Teeth exam: ABSENT: poor dentation Neck exam: ABSENT: lymphadenopathy, meningismus, tenderness, thyromegaly, tracheal deviation Respiratory exam: PRESENT: clear to auscultation kareen. ABSENT: accessory muscle use, chest wall tenderness, rales, retraction, rhonchi Cardiovascular exam: PRESENT: RRR GI/Abdominal exam: PRESENT: distended - Mild to moderate, tenderness - Mild, other - No peritoneal signs. ABSENT: guarding, rebound, rigid Extremities exam: ABSENT: clubbing, joint swelling, pedal edema Neurological exam: PRESENT: alert, awake, oriented to person, oriented to place , oriented to time, oriented to situation Psychiatric exam: PRESENT: normal mood. ABSENT: agitated, anxious Skin exam: ABSENT: cyanosis, erythema, jaundice Results Laboratory Results: 06/27/17 06:07 06/27/17 06:07 06/27/17 06/27/17 06:07 06:07 WBC 8.0 RBC 3.83 Hgb 7.3 L Hct 24.3 L MCV 64 L D MCH 19.2 L MCHC 30.1 L RDW 26.0 H Plt Count 272 Seg Neutrophils % 79.7 H Lymphocytes % 11.9 L Monocytes % 8.1 Eosinophils % 0.1 Basophils % 0.2 Absolute Neutrophils 6.4 Absolute Lymphocytes 0.9 Absolute Monocytes 0.6 Absolute Eosinophils 0.0 Absolute Basophils 0.0 Sodium 139.0 Potassium 4.0 Chloride 103 Carbon Dioxide 26 Anion Gap 10 BUN 6 L Creatinine 0.59 Est GFR ( Amer) > 60 Est GFR (Non-Af Amer) > 60 Glucose 127 H Calcium 9.2 Phosphorus 4.1 Magnesium 1.8 Total Bilirubin 1.1 AST 19 ALT 22 Alkaline Phosphatase 46 Total Protein 6.6 Albumin 3.8 Impressions: Abdomen/Pelvis CT 06/26/17 00:00 IMPRESSION: Multiple mildly dilated loops of small bowel throughout the abdomen with probable transition in the right lower quadrant suggesting early obstruction. Mild Free fluid . Abdomen X-Ray 06/26/17 13:30 IMPRESSION: Abnormal bowel gas pattern with air-fluid levels in mildly distended left upper quadrant small bowel loops. This could represent an ileus. Early or partial small bowel obstruction or complications from gastric bypass could not be excluded. If CT is to be performed for follow-up, recommend CT exam with oral contrast KUB X-Ray 06/27/17 06:00 IMPRESSION: Ileus or partial small bowel obstruction. No significant change. Assessment & Plan - Diagnosis (1) Small bowel obstruction Is this a current diagnosis for this admission?: Yes - Plan Summary Plan Summary: This is a 46-year-old female mid with a small bowel obstruction and anemia. She reports feeling better this morning. She is passing small amounts of flatus. Her repeat hemoglobin was found to be 7. Her x-rays still show contrast within the small bowel and a large stool burden within the right colon. Transfuse 1 more unit of packed red blood cells. A long discussion was held with the patient regarding her small bowel obstruction. At this time, the patient is refusing surgical intervention because she is feeling better and passing flatus. I have discussed her x-ray findings. I will repeat her x-rays tomorrow. If there is no movement of contrast on tomorrow's x-rays, she may require surgical intervention.
[2017-06-27 15:37] LABS: ANION GAP 10 (5-19); BLOOD UREA NITROGEN 5 mg/dL (7-20); CALCIUM 8.9 mg/dL (8.4-10.2); CARBON DIOXIDE 27 mmol/L (22-30); CHLORIDE 102 mmol/L (98-107); GLUCOSE 110 mg/dL (75-110); POTASSIUM 3.9 mmol/L (3.6-5.0); SODIUM 138.5 mmol/L (137-145)
[2017-06-27 15:52] LABS: ABSOLUTE EOSINOPHILS # (AUTO) 0.1 10^3/uL (0.0-0.6); ABSOLUTE MONOCYTES (AUTO) 0.7 10^3/uL (0.1-1.4); ABSOLUTE NEUT (AUTO) 6.1 10^3/uL (1.7-8.2); BASOPHILS % (AUTO) 0.1 % (0-2); EOSINOPHILS % (AUTO) 0.7 % (0-6); HEMATOCRIT 26.5 % (36.0-47.0); HEMOGLOBIN 8.2 g/dL (12.0-15.5); LYMPHOCYTES % (AUTO) 12.3 % (13-45); MEAN CORPUSCULAR HEMOGLOBIN 20.2 pg (27.0-33.4); MEAN CORPUSCULAR HGB CONC 30.9 g/dL (32.0-36.0); MEAN CORPUSCULAR VOLUME 66 fl (80-97); MONOCYTES % (AUTO) 9.2 % (3-13); PLATELET COUNT 258 10^3/uL (150-450); RED BLOOD COUNT 4.04 10^6/uL (3.72-5.28); RED CELL DISTRIBUTION WIDTH 26.6 % (11.5-14.0); SEGMENTED NEUTROPHILS % (AUTO) 77.7 % (42-78); TOTAL CELLS COUNTED % (AUTO) 100 %; WHITE BLOOD COUNT 7.9 10^3/uL (4.0-10.5)
[2017-06-27 16:06] LABS: POLYCHROMASIA SLIGHT
[2017-06-27 16:07] LABS: ANISOCYTOSIS 3+; HYPOCHROMASIA 2+; OVALOCYTES 1+; PLATELET CLUMPS PRESENT; PLATELET COMMENT ADEQUATE; POIKILOCYTOSIS 2+; TEAR DROP CELLS 1+
--- NOTE | 2017-06-27 19:49 | Progress Note ---
Provider Note Provider Note: I went to see the patient for a follow-up visit. Patient reports that her pain is worsening and her distention is worse. She is nauseated. She has not passed any more flatus since this morning. Her abdomen is tender, most notably in the right lower quadrant. There is voluntary guarding present. I have again discussed her options. At this time, she is requesting surgery be performed. I have recommended exploratory laparoscopy versus laparotomy. Risks /benefits discussed, informed consent obtained, and all questions answered. Patient's family was present for the discussion.
[2017-06-27] MEDS ORDERED: FENTANYL CITRATE INJ/PF 100 MCG/2 ML AMPUL ONE ×2 (20:10→20:11)
[2017-06-27] MEDS ORDERED: MIDAZOLAM 2 MG/2 ML INJ ONE (20:11)
[2017-06-27] MEDS ORDERED: PROPOFOL INJ 200 MG/20 ML VIAL IV ONE (20:11)
[2017-06-27] MEDS ORDERED: ACETAMINOPHEN 100 ML IV ONE (20:12)
[2017-06-27] MEDS ORDERED: HYDROMORPHONE HCL INJ/PF 2 MG/ML AMPULE ONE ×2 (20:12→22:55)
[2017-06-27] MEDS ORDERED: BUPIVACAINE HCL 0.25 % INJ/PF (2.5 MG/1 ML) 30 ML VIAL ONE (20:51)
[2017-06-27] MEDS ORDERED: CEFAZOLIN INJ 1 GM VIAL ONE (21:02)
[2017-06-27] MEDS ORDERED: DIPHENHYDRAMINE HCL 50 MG/ML VIAL IV PRN (21:56)
[2017-06-27] MEDS ORDERED: PROMETHAZINE HCL INJ 25 MG/1 ML VIAL IV PRN (21:56)
[2017-06-27] MEDS ORDERED: FENTANYL CITRATE INJ/PF 100 MCG/2 ML AMPUL IV PRN ×3 (21:56)
[2017-06-27] MEDS ORDERED: SUGAMMADEX SODIUM 200 MG/2 ML SDV IV ONE (22:04)
[2017-06-27] MEDS ORDERED: KETOROLAC TROMETHAMINE INJ/PF 30 MG/1 ML SDV ONE (22:46)
[2017-06-28] MEDS ORDERED: KETOROLAC TROMETHAMINE INJ/PF 30 MG/1 ML SDV IV SCH (00:04)
--- NOTE | 2017-06-28 00:11 | Operative Report ---
Nonrecallable Operative Report DATE OF SURGERY: 06/27/17 PREOPERATIVE DIAGNOSIS: Small bowel obstruction status post gastric bypass POSTOPERATIVE DIAGNOSIS: 1. Adhesions of the omentum to the right pelvis causing a distal small bowel obstruction. 2. Status post gastric bypass OPERATION: 1. Exploratory upper endoscopy converted to exploratory laparotomy. 2. Lysis of adhesions. SURGEON: BALDEV SINGH ANESTHESIA: GA TISSUE REMOVED OR ALTERED: Portion of omentum COMPLICATIONS: None apparent ESTIMATED BLOOD LOSS: 50 cc PROCEDURE: After informed consent was obtained, the patient was brought into the operating room and laid in the supine position. The area of the abdomen was prepped and draped in a normal sterile fashion. A 15 blade scalpel was used to create an incision in the left upper quadrant. A 5 mm trocar was then introduced into the abdominal cavity under direct laparoscopic visualization using the Optiview technique. Gas insufflation was attached, and pneumoperitoneum was achieved. There was a large amount of distended small bowel and very little could be ascertained with the limited view. Secondary to this, the laparoscopic approach was abandoned for an open procedure. A vertical midline incision was created using a 10 blade scalpel. Dissection was carried down through the subcutaneous tissue using sharp dissection and Bovie electrocautery. The abdomen was entered sharply through the linea alba. Attention was then turned to evisceration of the small bowel. The small bowel was dilated throughout. Examination of the bowel started at the ileocecal valve. Just proximal to the ileocecal valve, there was a piece of omentum that was adherent to the pelvis. This was wrapped around the terminal ileum causing an obstruction. This band was divided, and this portion of the omentum was resected. Intestinal contents then flowed easily through the ileocecal valve and into the right colon. The remainder of the small bowel was then examined, running from the terminal ileum to the entero-enteric anastomosis. The gastric limb (antecolic) and biliopancreatic limb were then traced back to their origins. No other areas of stricture, obstruction, or abnormality were noted. The colon was examined from the ileocecal valve to the rectum. No obvious abnormality could be identified in the colon. Once this was confirmed, the small bowel was returned to the abdominal cavity and closure was undertaken. The midline fascia was reapproximated using #1 Double-Stranded Loop PDS suture in simple running fashion. The overlying skin was closed using skin colleen. A dressing was fashioned, and the procedure was concluded. Sponge, instrument, and needle counts were correct 2. Condition: Fair.
[2017-06-28] MEDS ORDERED: KETOROLAC TROMETHAMINE INJ/PF 30 MG/1 ML SDV IV ONE (00:30)
[2017-06-28] MEDS ORDERED: FAMOTIDINE INJ/PF 20 MG/2 ML SDV IV ONE (00:30)
[2017-06-28] MEDS: HYDROMORPHONE HCL INJ/PF 2 MG/ML AMPULE IV PRN ×6 (01:19→22:55)
[2017-06-28] MEDS ORDERED: NORMAL SALINE 1000 ML 1,000 ML IV ONE (03:00)
[2017-06-28] MEDS: POTASSI CL 20 MEQ/D5-1/2NS 1L 1,000 ML IV PRN ×3 (03:59→20:08)
[2017-06-28] MEDS: KETOROLAC TROMETHAMINE INJ/PF 30 MG/1 ML SDV IV SCH ×3 (05:39→21:27)
[2017-06-28 06:35] LABS: ANION GAP 8 (5-19); BLOOD UREA NITROGEN 5 mg/dL (7-20); CALCIUM 7.8 mg/dL (8.4-10.2); CARBON DIOXIDE 25 mmol/L (22-30); CHLORIDE 107 mmol/L (98-107); GLUCOSE 100 mg/dL (75-110); POTASSIUM 3.7 mmol/L (3.6-5.0); SODIUM 139.9 mmol/L (137-145)
[2017-06-28 06:36] LABS: ABSOLUTE EOSINOPHILS # (AUTO) 0.1 10^3/uL (0.0-0.6); ABSOLUTE LYMPHOCYTES (AUTO) 1.1 10^3/uL (0.5-4.7); ABSOLUTE MONOCYTES (AUTO) 0.7 10^3/uL (0.1-1.4); ABSOLUTE NEUT (AUTO) 6.7 10^3/uL (1.7-8.2); BASOPHILS % (AUTO) 0.1 % (0-2); EOSINOPHILS % (AUTO) 0.7 % (0-6); HEMATOCRIT 25.4 % (36.0-47.0); LYMPHOCYTES % (AUTO) 12.7 % (13-45); MEAN CORPUSCULAR HEMOGLOBIN 20.5 pg (27.0-33.4); MEAN CORPUSCULAR HGB CONC 30.8 g/dL (32.0-36.0); MEAN CORPUSCULAR VOLUME 67 fl (80-97); MONOCYTES % (AUTO) 7.8 % (3-13); PLATELET COUNT 215 10^3/uL (150-450); RED BLOOD COUNT 3.82 10^6/uL (3.72-5.28); RED CELL DISTRIBUTION WIDTH 26.3 % (11.5-14.0); SEGMENTED NEUTROPHILS % (AUTO) 78.7 % (42-78); TOTAL CELLS COUNTED % (AUTO) 100 %; WHITE BLOOD COUNT 8.5 10^3/uL (4.0-10.5)
[2017-06-28 07:01] LABS: HEMOGLOBIN 7.8 g/dL (12.0-15.5)
[2017-06-28 07:05] LABS: HYPOCHROMASIA 3+
[2017-06-28 07:06] LABS: ANISOCYTOSIS 3+; OVALOCYTES 1+; PLATELET COMMENT ADEQUATE; POIKILOCYTOSIS 2+; STOMATOCYTES 1+; TEAR DROP CELLS 1+
--- NOTE | 2017-06-28 08:40 | RADIOLOGY REPORT (SQ) ---
EXAM DESCRIPTION: KUB/ABDOMEN (SINGLE VIEW) COMPLETED DATE/TIME: 06/28/2017 8:02 am REASON FOR STUDY: SBO COMPARISON: 06/27/2017 NUMBER OF VIEWS: One view. TECHNIQUE: Supine radiographic image of the abdomen acquired. LIMITATIONS: None. FINDINGS: BOWEL GAS PATTERN: Oral contrast is now throughout nondilated colon. Gas within small bow el right lower quadrant diameter upper limits of normal. CALCIFICATIONS: No suspicious calcifications. SOFT TISSUES: No gross mass or suggestion of organomegaly. HARDWARE: Midline skin colleen. Skin colleen left and right upper quadrants. BONES: No bone lesions or fracture. OTHER: No other significant finding. IMPRESSION: Resolving postoperative ileus. Reading location - IP/workstation name: [email or web address]
[2017-06-28] MEDS: FAMOTIDINE INJ/PF 20 MG/2 ML SDV IV SCH ×2 (09:35→21:27)
--- NOTE | 2017-06-28 11:18 | PDOC PROGRESS REPORT ---
Subjective Progress Note for:: 06/28/17 Reason For Visit: SMALL BOWEL OBSTRUCTION Patient is one day postop exploratory laparotomy, lysis of adhesion, hemodynamically stable neurologically intact. No events overnight. Physical Exam Vital Signs: Temp Pulse Resp BP Pulse Ox 98.1 F 65 18 107/67 98 06/28/17 08:10 06/28/17 08:10 06/28/17 08:10 06/28/17 08:10 06/28/17 08:10 Intake & Output 06/27/17 06/28/17 06/29/17 06:59 06:59 06:59 Intake Total 0 2800 Output Total 1825 Balance 0 975 Weight 64.4 kg 68 kg General appearance: PRESENT: mild distress GI/Abdominal exam: PRESENT: other - Midline dressing intact; abdomen appropriately tender. No peritoneal signs no rigidity. Results Laboratory Results: 06/28/17 05:51 06/28/17 05:51 06/27/17 06/27/17 06/28/17 14:52 14:52 05:51 WBC 7.9 8.5 RBC 4.04 3.82 Hgb 8.2 L 7.8 L Hct 26.5 L 25.4 L MCV 66 L 67 L MCH 20.2 L 20.5 L MCHC 30.9 L 30.8 L RDW 26.6 H 26.3 H Plt Count 258 215 Seg Neutrophils % 77.7 78.7 H Lymphocytes % 12.3 L 12.7 L Monocytes % 9.2 7.8 Eosinophils % 0.7 0.7 Basophils % 0.1 0.1 Absolute Neutrophils 6.1 6.7 Absolute Lymphocytes 1.0 1.1 Absolute Monocytes 0.7 0.7 Absolute Eosinophils 0.1 0.1 Absolute Basophils 0.0 0.0 Sodium 138.5 Potassium 3.9 Chloride 102 Carbon Dioxide 27 Anion Gap 10 BUN 5 L Creatinine 0.58 Est GFR ( Amer) > 60 Est GFR (Non-Af Amer) > 60 Glucose 110 Calcium 8.9 06/28/17 05:51 WBC RBC Hgb Hct MCV MCH MCHC RDW Plt Count Seg Neutrophils % Lymphocytes % Monocytes % Eosinophils % Basophils % Absolute Neutrophils Absolute Lymphocytes Absolute Monocytes Absolute Eosinophils Absolute Basophils Sodium 139.9 Potassium 3.7 Chloride 107 Carbon Dioxide 25 Anion Gap 8 BUN 5 L Creatinine 0.55 Est GFR ( Amer) > 60 Est GFR (Non-Af Amer) > 60 Glucose 100 Calcium 7.8 L Impressions: Abdomen/Pelvis CT 06/26/17 00:00 IMPRESSION: Multiple mildly dilated loops of small bowel throughout the abdomen with probable transition in the right lower quadrant suggesting early obstruction. Mild Free fluid . Abdomen X-Ray 06/26/17 13:30 IMPRESSION: Abnormal bowel gas pattern with air-fluid levels in mildly distended left upper quadrant small bowel loops. This could represent an ileus. Early or partial small bowel obstruction or complications from gastric bypass could not be excluded. If CT is to be performed for follow-up, recommend CT exam with oral contrast KUB X-Ray 06/28/17 06:00 IMPRESSION: Resolving postoperative ileus. Assessment & Plan - Diagnosis (1) Small bowel obstruction Is this a current diagnosis for this admission?: Yes Plan: Status post exploratory laparotomy, open, lysis of adhesions, doing well early postoperative course Recommendations: 1. Up, ambulate, incentive spirometer and coughing pillow. 2. DC Pena catheter later today.
[2017-06-29] MEDS: HYDROMORPHONE HCL INJ/PF 2 MG/ML AMPULE IV PRN ×3 (03:13→15:58)
[2017-06-29] MEDS: POTASSI CL 20 MEQ/D5-1/2NS 1L 1,000 ML IV PRN ×3 (04:34→21:14)
[2017-06-29] MEDS: KETOROLAC TROMETHAMINE INJ/PF 30 MG/1 ML SDV IV SCH ×3 (05:43→21:13)
[2017-06-29] MEDS: FAMOTIDINE INJ/PF 20 MG/2 ML SDV IV SCH ×2 (10:14→21:14)
--- NOTE | 2017-06-29 18:08 | PDOC PROGRESS REPORT ---
Subjective Progress Note for:: 06/29/17 Subjective:: Passed flatus this pm Reason For Visit: SMALL BOWEL OBSTRUCTION Physical Exam Vital Signs: Temp Pulse Resp BP Pulse Ox 98.9 F 76 18 115/65 98 06/29/17 15:34 06/29/17 15:34 06/29/17 15:34 06/29/17 15:34 06/29/17 15:34 Intake & Output 06/28/17 06/29/17 06/30/17 06:59 06:59 06:59 Intake Total 2800 1340 Output Total 1825 2550 Balance 975 -1210 Weight 68 kg 67.7 kg Exam: Abdomen soft with mild tenderness along incision site. Incision dressing appears clean and dry Results Laboratory Results: 06/28/17 05:51 06/28/17 05:51 Impressions: Abdomen/Pelvis CT 06/26/17 00:00 IMPRESSION: Multiple mildly dilated loops of small bowel throughout the abdomen with probable transition in the right lower quadrant suggesting early obstruction. Mild Free fluid . Abdomen X-Ray 06/26/17 13:30 IMPRESSION: Abnormal bowel gas pattern with air-fluid levels in mildly distended left upper quadrant small bowel loops. This could represent an ileus. Early or partial small bowel obstruction or complications from gastric bypass could not be excluded. If CT is to be performed for follow-up, recommend CT exam with oral contrast KUB X-Ray 06/28/17 06:00 IMPRESSION: Resolving postoperative ileus. Assessment & Plan - Time Time Spent with patient: 15-24 minutes - Plan Summary Plan Summary: Start clears Continue ambulation
[2017-06-29] MEDS: ONDANSETRON HCL INJ/PF 4 MG/2 ML SDV IV PRN (18:17)
[2017-06-30] MEDS: KETOROLAC TROMETHAMINE INJ/PF 30 MG/1 ML SDV IV SCH ×2 (05:00→13:17)
[2017-06-30] MEDS: POTASSI CL 20 MEQ/D5-1/2NS 1L 1,000 ML IV PRN ×2 (05:02→13:18)
[2017-06-30 07:21] LABS: ABSOLUTE EOSINOPHILS # (AUTO) 0.2 10^3/uL (0.0-0.6); ABSOLUTE MONOCYTES (AUTO) 0.5 10^3/uL (0.1-1.4); BASOPHILS % (AUTO) 0.4 % (0-2); EOSINOPHILS % (AUTO) 3.3 % (0-6); HEMATOCRIT 27.7 % (36.0-47.0); HEMOGLOBIN 8.5 g/dL (12.0-15.5); LYMPHOCYTES % (AUTO) 17.7 % (13-45); MEAN CORPUSCULAR HEMOGLOBIN 20.8 pg (27.0-33.4); MEAN CORPUSCULAR HGB CONC 30.7 g/dL (32.0-36.0); MEAN CORPUSCULAR VOLUME 68 fl (80-97); MONOCYTES % (AUTO) 8.5 % (3-13); PLATELET COUNT 221 10^3/uL (150-450); RED BLOOD COUNT 4.09 10^6/uL (3.72-5.28); RED CELL DISTRIBUTION WIDTH 29.8 % (11.5-14.0); SEGMENTED NEUTROPHILS % (AUTO) 70.1 % (42-78); TOTAL CELLS COUNTED % (AUTO) 100 %; WHITE BLOOD COUNT 5.7 10^3/uL (4.0-10.5)
[2017-06-30 07:35] LABS: ANION GAP 10 (5-19); BLOOD UREA NITROGEN 3 mg/dL (7-20); CALCIUM 8.6 mg/dL (8.4-10.2); CARBON DIOXIDE 26 mmol/L (22-30); CHLORIDE 107 mmol/L (98-107); GLUCOSE 100 mg/dL (75-110); SODIUM 143.1 mmol/L (137-145)
[2017-06-30 07:50] LABS: ANISOCYTOSIS 4+; HYPOCHROMASIA 2+; PLATELET CLUMPS PRESENT; POLYCHROMASIA 1+; TARGET CELLS SLIGHT; TOXIC GRANULATION SLIGHT; TOXIC VACUOLATION PRESENT
[2017-06-30] MEDS: HYDROMORPHONE HCL INJ/PF 2 MG/ML AMPULE IV PRN (07:58)
--- NOTE | 2017-06-30 10:20 | PDOC PROGRESS REPORT ---
Subjective Progress Note for:: 06/30/17 Subjective:: Had a good BM this am. No more Nausea Reason For Visit: SMALL BOWEL OBSTRUCTION Physical Exam Vital Signs: Temp Pulse Resp BP Pulse Ox 98.5 F 70 16 122/69 94 06/30/17 08:06 06/30/17 08:06 06/30/17 08:06 06/30/17 08:06 06/30/17 08:06 Intake & Output 06/29/17 06/30/17 07/01/17 06:59 06:59 06:59 Intake Total 1340 1353 Output Total 2550 2230 Balance -1210 -3795 Weight 67.7 kg 67.4 kg Exam: Abd is soft and non tender Results Laboratory Results: 06/30/17 07:00 06/30/17 07:00 06/30/17 06/30/17 07:00 07:00 WBC 5.7 RBC 4.09 Hgb 8.5 L Hct 27.7 L MCV 68 L MCH 20.8 L MCHC 30.7 L RDW 29.8 H Plt Count 221 Seg Neutrophils % 70.1 Lymphocytes % 17.7 Monocytes % 8.5 Eosinophils % 3.3 Basophils % 0.4 Absolute Neutrophils 4.0 Absolute Lymphocytes 1.0 Absolute Monocytes 0.5 Absolute Eosinophils 0.2 Absolute Basophils 0.0 Sodium 143.1 Potassium 4.0 Chloride 107 Carbon Dioxide 26 Anion Gap 10 BUN 3 L Creatinine 0.54 Est GFR ( Amer) > 60 Est GFR (Non-Af Amer) > 60 Glucose 100 Calcium 8.6 Impressions: Abdomen/Pelvis CT 06/26/17 00:00 IMPRESSION: Multiple mildly dilated loops of small bowel throughout the abdomen with probable transition in the right lower quadrant suggesting early obstruction. Mild Free fluid . Abdomen X-Ray 06/26/17 13:30 IMPRESSION: Abnormal bowel gas pattern with air-fluid levels in mildly distended left upper quadrant small bowel loops. This could represent an ileus. Early or partial small bowel obstruction or complications from gastric bypass could not be excluded. If CT is to be performed for follow-up, recommend CT exam with oral contrast KUB X-Ray 06/28/17 06:00 IMPRESSION: Resolving postoperative ileus. Assessment & Plan - Time Time Spent with patient: 15-24 minutes - Plan Summary Plan Summary: Resume clears and advance as tolerated. Discharge in 24 hrs if remains stable tolerating soft diet.
[2017-06-30] MEDS: FAMOTIDINE INJ/PF 20 MG/2 ML SDV IV SCH ×2 (11:41→22:27)
[2017-06-30] MEDS: OXYCODONE-ACETAMINOPHEN 5-325 MG TABLET PO PRN (19:42)
[2017-07-01] MEDS: OXYCODONE-ACETAMINOPHEN 5-325 MG TABLET PO PRN ×3 (01:26→13:51)
[2017-07-01] MEDS: FAMOTIDINE INJ/PF 20 MG/2 ML SDV IV SCH (09:17)
[2017-07-01] MEDS ORDERED: CALCIUM CARBONATE 500 MG TAB.CHEW PO PRN (14:08)
[2017-07-01 14:25] VITALS: BP 116/73
== END 2017-07-01 16:01 | disposition home or self-care (01) | DRG 337 ==
LOC: ER 12:45 → EH 20:41 → 2N 22:06
PROVIDERS: ADMIT Surgery; ATTEND Surgery
PROC: 30233N1 Transfusion of Nonautologous Red Blood Cells into Peripheral Vein, Percutaneous Approach (ICD-10-PCS; 2017-06-26)
PROC: 0DNB0ZZ Release Ileum, Open Approach (ICD-10-PCS; principal; 2017-06-28)
PROC: 0DJD4ZZ Inspection of Lower Intestinal Tract, Percutaneous Endoscopic Approach (ICD-10-PCS; 2017-06-28)
DX: K56.51 Intestinal adhesions [bands], with partial obstruction (principal); K56.2 Volvulus; K58.9 Irritable bowel syndrome, unspecified; K56.7 Ileus, unspecified; D50.9 Iron deficiency anemia, unspecified; K59.09 Other constipation; F17.210 Nicotine dependence, cigarettes, uncomplicated; Z98.84 Bariatric surgery status
CPT/HCPCS: 36415; 36430; 74018; 74019; 74177; 790; 80048; 80053; 81001; 82272; 83605; 83690; 83735; 84100; 84703; 85025; 85610; 86850; 86900; 86901; 86920; 94799; 96374; 96375; 96376; 99285; J0131; J0330; J0690; J1170; J1885; J2250; J2270; J2405; J2704; J2765; J3010; J3480; J3490; J7030; J7050; P9016; S0028; S0119

== ENCOUNTER 2020-01-02 06:10 | Day surgery (SDC) | payer BC ==
--- NOTE | 2019-12-29 09:11 | RADIOLOGY REPORT (SQ) ---
EXAM DESCRIPTION: CHEST PA/LATERAL IMAGES COMPLETED DATE/TIME: 12/29/2019 9:02 am REASON FOR STUDY: COUGH COMPARISON: 06/26/2017 EXAM PARAMETERS: NUMBER OF VIEWS: two views TECHNIQUE: Digital Frontal and Lateral radiographic views of the chest acquired. RADIATION DOSE: NA LIMITATIONS: none FINDINGS: LUNGS AND PLEURA: Small calcified granuloma in the right upper lobe. Lung rowell are othe rwise clear. No consolidation or effusions. No pneumothorax. MEDIASTINUM AND HILAR STRUCTURES: No masses or contour abnormalities. HEART AND VASCULAR STRUCTURES: Heart normal size. No evidence for failure. BONES: No acute findings. HARDWARE: None in the chest. OTHER: No other significant finding. IMPRESSION: NO SIGNIFICANT RADIOGRAPHIC FINDING IN THE CHEST. TECHNICAL DOCUMENTATION: JOB ID: [id number] 2010 [email or web address] All Rights Reserved Reading location - IP/workstation name: [email or web address]
[2019-12-29 09:21] LABS: HEMATOCRIT 38.3 % (36.0-47.0); HEMOGLOBIN 13.4 g/dL (12.0-15.5); MEAN CORPUSCULAR HEMOGLOBIN 31.9 pg (27.0-33.4); MEAN CORPUSCULAR HGB CONC 35.1 g/dL (32.0-36.0); MEAN CORPUSCULAR VOLUME 91 fl (80-97); RED BLOOD COUNT 4.22 10^6/uL (3.72-5.28); RED CELL DISTRIBUTION WIDTH 13.9 % (11.5-14.0); WHITE BLOOD COUNT 5.2 10^3/uL (4.0-10.5)
[2019-12-29 09:44] LABS: ALBUMIN 4.1 g/dL (3.5-5.0); ALKALINE PHOSPHATASE 48 U/L (38-126); ANION GAP 10 (5-19); ASPARTATE AMINO TRANSFERASE 29 U/L (14-36); BILIRUBIN,DIRECT 0.1 mg/dL (0.0-0.4); BILIRUBIN,TOTAL 0.4 mg/dL (0.2-1.3); BLOOD UREA NITROGEN 12 mg/dL (7-20); CALCIUM 9.7 mg/dL (8.4-10.2); CARBON DIOXIDE 25 mmol/L (22-30); CHLORIDE 106 mmol/L (98-107); POTASSIUM 4.1 mmol/L (3.6-5.0)
[2019-12-29 09:47] LABS: GLUCOSE 67 mg/dL (75-110)
[2019-12-29 10:30] LABS: PLATELET COUNT 222 10^3/uL (150-450)
--- NOTE | 2019-12-29 12:43 | EKG REPORT ---
SEVERITY:- NORMAL ECG - SINUS RHYTHM : Confirmed by: Neri Fernández MD 29-Dec-2019 12:42:11
[~2020-01-02 06:10] MED LIST: ACETAMINOPHEN 1,000 MG/100 ML RTUPB IV ONE; ACETAMINOPHEN 1,000 MG/100 ML RTUPB IV PRN; CEFAZOLIN 2 GM/D5W RTU 2 GM/50 ML RTUPB IV ONE; CEFAZOLIN 2 GM/D5W RTU 2 GM/50 ML RTUPB IV PRN; IBUPROFEN 800 MG in NORMAL SALINE 250 ML IV PRN; RINGERS SOLUTION,LACTATED 1,000 ML IV PRN
[2020-01-02] MEDS ORDERED: ONDANSETRON HCL INJ/PF 4 MG/2 ML SDV ONE (07:26)
[2020-01-02] MEDS ORDERED: HYDROMORPHONE HCL INJ/PF 2 MG/ML AMPULE ONE (07:26)
[2020-01-02] MEDS ORDERED: PROPOFOL INJ 200 MG/20 ML VIAL IV ONE (07:26)
[2020-01-02] MEDS ORDERED: SUGAMMADEX SODIUM 200 MG/2 ML SDV IV ONE (07:26)
[2020-01-02] MEDS ORDERED: MIDAZOLAM 2 MG/2 ML INJ ONE (07:26)
[2020-01-02] MEDS ORDERED: FENTANYL CITRATE INJ/PF 100 MCG/2 ML AMPUL ONE ×2 (07:26→10:56)
[2020-01-02] MEDS ORDERED: DEXAMETHASONE SOD PHOSPHATE INJ 4 MG/1 ML VIAL ONE (07:26)
[2020-01-02] MEDS ORDERED: BUPIVACAINE HCL 0.25 % INJ/PF (2.5 MG/1 ML) 30 ML VIAL ONE (07:34)
[2020-01-02] MEDS ORDERED: DIPHENHYDRAMINE HCL 50 MG/ML VIAL IV PRN (08:28)
[2020-01-02] MEDS ORDERED: MORPHINE SULFATE 10 MG/ML INJ IV PRN (08:28)
[2020-01-02] MEDS ORDERED: MEPERIDINE HCL/PF INJ 25 MG/1 ML DISP.SYRIN IV PRN (08:28)
[2020-01-02] MEDS ORDERED: PROMETHAZINE HCL INJ 25 MG/1 ML VIAL IV PRN (08:28)
[2020-01-02] MEDS ORDERED: FENTANYL CITRATE INJ/PF 100 MCG/2 ML AMPUL IV PRN ×2 (08:28)
--- NOTE | 2020-01-02 10:47 | Discharge Summary ---
Discharge Summary (SDC) - Discharge Final Diagnosis: Iranian cheese ventral hernia Date of Surgery: 01/02/20 Discharge Date: 01/02/20 Condition: Stable Forms: ASU Anesthesia D/C Instruction, Discharge POC-Surgical Service Treatment or Instructions: Discharge home. Diet as tolerated. Activity: No lifting greater than 10 pounds x 6 weeks. Follow-up with [facility] in 7 to 10 days. [place] 10/325 mg p.o. every 6 hours as needed for pain. Okay to shower starting on . No tub baths or swimming pools x2 weeks. Prescriptions: Hydrocodone/Acetaminophen [[place] 10-325 mg Tablet] 1 tab PO Q6HP PRN #28 tablet PRN Reason: For Pain Referrals: BALDEV SINGH MD [ACTIVE STAFF] - 01/15/20 8:15 am Discharge Diet: As Tolerated Respiratory Treatments at Home: Deep Breathing/Coughing, Incentive Spirometer Discharge Activity: Activity As Tolerated, Balance Activity w/Rest Home Care Assistance: None Needed Report the Following to Your Physician Immediately: Shortness of Breath, Nausea, Vomiting, Increase in Pain, Fever over 101 Degrees, Unusual Bleeding
[2020-01-02] MEDS: FENTANYL CITRATE INJ/PF 100 MCG/2 ML AMPUL IV PRN ×2 (10:57→11:07)
--- NOTE | 2020-01-02 10:57 | Operative Report ---
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 Procedure in detail: After informed consent was obtained, the patient was brought to the operating room and laid in the supine position. The area of the abdomen was prepped and draped in a normal sterile fashion. An incision was created in the left upper quadrant. The 5 mm camera and trocar were inserted into the abdominal cavity using the Optiview technique. The gas insufflation w as attached, pneumoperitoneum was achieved. A 12 mm left lateral abdominal trocar was placed, as well as an 8 mm robotic left lower quadrant trocar. Next, the 5 mm left upper quadrant trocar was rep laced with an 8 mm robotic trocar. The robot was then brought over the patient and docked appropriately. I then assumed my position at the surgeon's console. Attention was turned to the measuring of the defect. There were multiple small, medium, and large vertical midline hernia defects. There was also significant amount of diastases recti. The defect measured 15 cm in craniocaudal direction. In light of this, a 25 cm long mesh would be required in order to adequately cover the defect with appropriate overlap. #1 V-Loc suture was used to reapproximate the rectus muscles in the midline, closing the defect. Once this was completed, the 25 x [address] hernia mesh was inserted into the abdominal cavity. It was apposed to the anterior abdominal wall using the EPS. Once this was completed, the mesh was sutured circumferentially using 2 oh VLock suture in simple running fashion. Once the mesh was found to be in good place, attention was turned to undocking of the robot and closure of the port sites. I resumed my position at the operating table. A right upper quadrant 5 mm trocar was placed to facilitate closure of the left-sided abdominal trocar sites. 0 Vicryl suture was used to close the 8 mm robotic trocar sites, in simple interrupted fashion with the aid of the Laz-Chito device. The 12 mm site was closed using 2 separate 0 Vicryl sutures in interrupted fashion, with the aid of the Laz-Chito device. Once the fascia was closed, the overlying skin was reapproximated using 4-0 Vicryl Rapide suture in running subcuticular fashion. Dressings were then placed, and the procedure was concluded. All sponge, instrument, and needle counts were correct x2. Condition: Stable. Sonya Solomon PA-C was scrubbed and present the entirety of the procedure. She assisted with all portions of the procedure including opening of the abdomen, placement of the trochars, docking of the robot, exchanging of the robotic instruments, closure of the fascia, and closure of the skin.
[2020-01-02] MEDS ORDERED: MORPHINE SULFATE 10 MG/ML INJ ONE (11:17)
[2020-01-02] MEDS ORDERED: MORPHINE SULFATE 10 MG/ML INJ IV ONE (11:33)
[2020-01-02] MEDS ORDERED: HYDROCODONE/ACETAMINOPHEN 10-325 MG TABLET PO PRN (11:44)
[2020-01-02] MEDS ORDERED: HYDROCODONE/ACETAMINOPHEN 10-325 MG TABLET ONE (12:04)
[2020-01-02 14:00] VITALS: BP 117/75
== END 2020-01-02 13:00 | disposition home or self-care (01) ==
LOC: OROUT 06:10
PROVIDERS: ATTEND Surgery
DX: K43.9 Ventral hernia without obstruction or gangrene (principal); D64.9 Anemia, unspecified; M62.08 Separation of muscle (nontraumatic), other site; Z98.84 Bariatric surgery status; F32.9 Major depressive disorder, single episode, unspecified; N85.2 Hypertrophy of uterus; Z03.818 Encounter for observation for suspected exposure to other biological agents ruled out; Z90.49 Acquired absence of other specified parts of digestive tract; Z79.899 Other long term (current) drug therapy
CPT/HCPCS: 93005; 36415; 85027; 81025; 80053; 71046; 93010; 49652; C1781; U0003; J2250; J1100; J3010; J2270; J1170; J2405; J7050; J2704; J0690; J0131; J1741; J3490; C9803; 790; 87635